=== PATIENT | female | born 1975 | race Asian ===

== ENCOUNTER → 2017-05-24 | Outpatient (CLI) | payer OTHER | LOC: CIMAGING 07:58 | PROVIDERS: ATTEND Family Medicine | DX: Z12.31 Encounter for screening mammogram for malignant neoplasm of breast (principal) | CPT/HCPCS: G0202 ==

== ENCOUNTER → 2018-05-25 | Outpatient (CLI) | payer OTHER | LOC: CIMAGING 08:40 | PROVIDERS: ATTEND Family Medicine | DX: Z12.31 Encounter for screening mammogram for malignant neoplasm of breast (principal) ==